=== PATIENT | female | born 1960 | race Caucasian/White ===

== ENCOUNTER 2016-09-02 19:51 | Inpatient (IN) | payer BC ==
[~2016-09-02] VITALS: Ht 167.6 cm; Wt 92.8 kg
[2016-09-02] MEDS ORDERED: MORPHINE SULFATE 8 MG/ML INJ ONE (19:55)
[2016-09-02] MEDS ORDERED: PROPOFOL 500 MG/50 ML INJ 50 ML ONE (19:57)
[2016-09-02 20:17] LABS: AUTOMATED NEUTROPHIL # 4.2 TH/MM3 (1.8-7.7); BASOPHIL # 0.1 TH/MM3 (0-0.2); BASOPHIL % 1.3 % (0.0-2.0); EOSINOPHIL # 0.2 TH/MM3 (0-0.4); EOSINOPHIL % 2.7 % (0.0-4.0); HEMATOCRIT 41.8 % (35.0-46.0); HEMO FLAGS DIFF FINAL; LYMPH % 42.7 % (9.0-44.0); LYMPHOCYTE # 3.8 TH/MM3 (1.0-4.8); MEAN CELL VOLUME 89.5 FL (80.0-100.0); MEAN CORPUSCULAR HEMOGLOBIN 30.1 PG (27.0-34.0); MEAN CORPUSCULAR HGB CONC 33.7 % (32.0-36.0); MONO % 7.2 % (0.0-8.0); NEUT % 46.1 % (16.0-70.0); PLATELET COUNT 351 TH/MM3 (150-450); RED BLOOD COUNT 4.67 MIL/MM3 (4.00-5.30); RED CELL DISTRIBUTION WIDTH 13.2 % (11.6-17.2)
--- NOTE | 2016-09-02 20:18 | PD ---
HPI Chief Complaint: ankle injury Time Seen by Provider: 19:56 Travel History International Travel<30 days: No Contact w/Intl Traveler<30days: No History of Present Illness HPI This is a 56-year-old female who was walking out of a restaurant when she tripped over a curb landing on her hands outstretched sustaining significant injury to her right ankle. She reports severe ankle pain, constant, worse with movement, improved with rest. EMS arrived and noted that the patient had bone sticking out of her leg. She also is tachycardic so she was made a trauma alert. She did not hit her head or sustain any other injuries except that she has some left ankle pain as well. FORMERLY [facility] Past Medical History Narrative Medical Hypothyroidism Seizure disorder Social History Alcohol Use: Yes (occasional) Tobacco Use: No Allergies-Medications (Allergen,Severity, Reaction): Coded Allergies: No Known Allergies (Unverified , 09/02/16) Reported Meds & Prescriptions Reported Meds & Active Scripts Active Reported Advair Diskus Inh (Fluticasone-Salmeterol Inh) 250-50 Mcg/Blist Aer 1 Puff INH DAILY Rinse mouth after use. Levothyroxine (Levothyroxine Sodium) 75 Mcg Tab 75 Mcg PO DAILY Protonix (Pantoprazole Sodium) 20 Mg Tab 20 Mg PO DAILY Tegretol (Carbamazepine) 200 Mg Tab 200 Mg PO HS Review of Systems Except as stated in HPI: all other systems reviewed are Neg Physical Exam Narrative GENERAL:Well appearing, no acute distress SKIN: Skin tenting and 1 cm breakdown immediately distal to the right tibia with skin tenting over the malleolus HEAD: Atraumatic. Normocephalic. EYES: Pupils equal and round. No injection or drainage. ENT: Moist mucous membranes NECK: Trachea midline. CARDIOVASCULAR: Regular rate and rhythm. No murmur appreciated. 2+ DP pulse in the right and left lower extremities with normal capillary refill. RESPIRATORY: Clear to auscultation. Breath sounds equal bilaterally. GASTROINTESTINAL: Abdomen soft, non-tender, nondistended. MUSCULOSKELETAL: gross deformity of the right ankle with obvious dislocation NEUROLOGICAL: Awake and alert. No obvious cranial nerve deficits. Moving all extremities. PSYCHIATRIC: Appropriate mood and affect; insight and judgment normal. Data Data Orders Morphine Inj (Morphine Inj) (09/02/16 19:55) Propofol 500 Mg/50 Ml Inj (Diprivan 500 (09/02/16 19:57) Admit Order (Ed Use Only) (09/02/16 ) Labs Laboratory Tests Test 09/02/16 19:55 White Blood Count 9.0 TH/MM3 Red Blood Count 4.67 MIL/MM3 Hemoglobin 14.1 GM/DL Bedside Hemoglobin 14.6 G/DL Hematocrit 41.8 % Bedside Hematocrit 43.0 % Mean Corpuscular Volume 89.5 FL Mean Corpuscular Hemoglobin 30.1 PG Mean Corpuscular Hemoglobin 33.7 % Concent Red Cell Distribution Width 13.2 % Platelet Count 351 TH/MM3 Mean Platelet Volume 7.4 FL Neutrophils (%) (Auto) 46.1 % Lymphocytes (%) (Auto) 42.7 % Monocytes (%) (Auto) 7.2 % Eosinophils (%) (Auto) 2.7 % Basophils (%) (Auto) 1.3 % Neutrophils # (Auto) 4.2 TH/MM3 Lymphocytes # (Auto) 3.8 TH/MM3 Monocytes # (Auto) 0.6 TH/MM3 Eosinophils # (Auto) 0.2 TH/MM3 Basophils # (Auto) 0.1 TH/MM3 CBC Comment DIFF FINAL Differential Comment Prothrombin Time 10.4 SEC Prothromb Time International 0.9 RATIO Ratio Activated Partial 22.2 SEC Thromboplast Time Bedside Sodium 142 MMOL/L Bedside Potassium 3.5 MMOL/L Bedside Chloride 103 MMOL/L Bedside Blood Urea Nitrogen 8 MG/DL Bedside Creatinine 0.6 MG/DL Bedside Glucose 110 MG/DL Blood Type A POSITIVE Antibody Screen NEGATIVE MDM Medical Screen Exam Complete: Yes Emergency Medical Condition: Yes Differential Diagnosis Tibial fracture, fibular fracture, neurovascular injury Narrative Course This is a 56-year-old female who presents to the emergency department having stepped off a curb sustaining an open fracture dislocation of the right ankle. Patient was seen in the trauma bay. IVs were established. X-rays were obtained. A conscious sedation was performed and the ankle was reduced. Betadine was placed over the open wound and the patient was splinted. She was given Ancef and gentamicin and given a tetanus shot. She was also given morphine for her pain. I spoke to Isai Christina on-call for Dr. Flor who asked that the patient be kept nothing by mouth after midnight and antibiotics be continued and patient will go to operating room first thing in the morning. Procedures Procedure Narrative After the risks and benefits were discussed the following procedure was performed: MODERATE SEDATION: The patient was placed on a ivory carver and pulse oximetry. An ambu bag and suction was immediately available at bedside. The patient was monitored by the nurse. Oxygen saturation, heart rate and blood pressure were monitored. Procedural sedation was acheived using 70 mg propofol . The patient was observed until awake and alert. Procedural Sedation time in attendance was 20 minutes. Ankle dislocation reduction: ankle was reduced using traction, countertraction. Betadine was placed on open wound. Pt had a 2+ d.p. pulse following reduction and splinting. Trauma Alert - Level One Trauma Alert Level One: Full trauma team activate, Patient evaluated, Trauma surgeon summoned Time Surgeon Summoned: 19:39 (Surgeon asked to come in) Diagnosis Diagnosis: Primary Impression: Open ankle fracture Qualified Code: S82.891C - Open ankle fracture, right, type III, initial encounter Admitting Physician Requests: Admit Nelli Romo MD September 02, 2016 20:18
[2016-09-02 20:24] LABS: I-STAT POTASSIUM 3.5 MMOL/L (3.5-4.9)
[2016-09-02] MEDS ORDERED: MORPHINE SULFATE 4 MG/ML INJ IV PUSH ONE (20:30)
[2016-09-02 20:32] LABS: APTT (PATIENT) 22.2 SEC (24.3-30.1); INTERNATIONAL NORMALIZED RATIO 0.9 RATIO; PROTHROMBIN TIME - PATIENT 10.4 SEC (9.8-11.6)
--- NOTE | 2016-09-02 20:36 | RADRPT ---
EXAM DATE/TIME: 09/02/2016 19:45 [facility] COMPARISON: No previous studies available for comparison. INDICATIONS : Trauma alert. Patient tripped over a curb. MEDICAL HISTORY : None. Unobtainable. SURGICAL HISTORY : Unobtainable. ENCOUNTER: Initial ACUITY: 1 day PAIN SCORE: Non-responsive. LOCATION: Left ankle. FINDINGS: There is soft tissue swelling over the lateral malleolus. There is a questionable tiny avulsion fract ure just below the lateral malleolus. No dislocation. Accessory ossicles noted adjacent to the medial malleolus. No dislocation. Small bone spurs posterior calcaneus. CONCLUSION: 1. Soft tissue swelling lateral malleolus tiny avulsion fracture. Balta Hogan MD on September 02, 2016 at 20:31 Board Certified Radiologist. This report was verified electronically.
--- NOTE | 2016-09-02 20:37 | RADRPT ---
EXAM DATE/TIME: 09/02/2016 19:45 [facility] COMPARISON: No previous studies available for comparison. INDICATIONS : Post reduction. MEDICAL HISTORY : Unobtainable. SURGICAL HISTORY : Unobtainable. ENCOUNTER: Subsequent ACUITY: 1 day PAIN SCORE: Non-responsive. LOCATION: Left ankle. FINDINGS: A single view of the right ankle. There is a mildly displaced fracture of the lateral malleolus. CONCLUSION: 1. Mildly displaced fracture of the lateral malleolus on this single AP view. Balta Hogan MD on September 02, 2016 at 20:33 Board Certified Radiologist. This report was verified electronically.
--- NOTE | 2016-09-02 20:38 | RADRPT ---
EXAM DATE/TIME: 09/02/2016 19:45 [facility] COMPARISON: No previous studies available for comparison. INDICATIONS : Trauma alert. Patient tripped over a curb. MEDICAL HISTORY : Unobtainable. SURGICAL HISTORY : Unobtainable. ENCOUNTER: Initial ACUITY: 1 day PAIN SCORE: Non-responsive. LOCATION: Right ankle. FINDINGS: Two view examination was performed of the right ankle. There is a fracture of the medial lateral mall eolus with medial dislocation of the tibial plafond and of the talar dome. No other fractures identif ied. CONCLUSION: 1. Fracture of both malleoli with medial dislocation at the right ankle. Air in the subcutaneous tiss ues. Balta Hogan MD on September 02, 2016 at 20:35 Board Certified Radiologist. This report was verified electronically.
--- NOTE | 2016-09-02 20:39 | RADRPT ---
EXAM DATE/TIME: 09/02/2016 19:45 [facility] COMPARISON: No previous studies available for comparison. INDICATIONS : Trauma alert. Patient tripped over a curb. Right ankle deformation. MEDICAL HISTORY : Unobtainable. SURGICAL HISTORY : Unobtainable. ENCOUNTER: Initial ACUITY: 1 day PAIN SCORE: Non-responsive. LOCATION: Bilateral chest FINDINGS: A single view of the chest demonstrates the lungs to be symmetrically aerated without evidence of mas s, infiltrate or effusion. The cardiomediastinal contours are unremarkable. Osseous structures are intact. CONCLUSION: Normal examination. Left costophrenic angle is clipped. Balta Hogan MD on September 02, 2016 at 20:36 Board Certified Radiologist. This report was verified electronically.
[2016-09-02] MEDS ORDERED: PANT20 PO (21:03)
[2016-09-02] MEDS ORDERED: ADVA250A INH (21:03)
[2016-09-02] MEDS ORDERED: LEVO75TA3 PO (21:03)
[2016-09-02] MEDS ORDERED: TEGR200T PO (21:03)
[2016-09-02] MEDS ORDERED: ACETAMINOPHEN/HYDROcodone 325 MG/5 MG TAB PO PRN (21:30)
[2016-09-02] MEDS ORDERED: SODIUM CHLORIDE 0.9% FLUSH 10 ML FLUSH IV FLUSH PRN (21:30)
[2016-09-02] MEDS ORDERED: ENALAPRILAT 1.25 MG/ML VIAL IV PRN (21:30)
[2016-09-02] MEDS ORDERED: MAGNESIUM HYDROXIDE SUSP 30 ML CUP PO PRN (21:30)
[2016-09-02] MEDS ORDERED: HYDROmorphone HCL PF 1 MG/ML VIAL IVP PRN (21:30)
[2016-09-02 21:45] VITALS: O2SAT 99
[2016-09-02] MEDS: SODIUM CHLOR 0.9% 1000 ML INJ 1,000 ML IV SCH (22:49)
[2016-09-02] MEDS: ONDANSETRON HCL 4 MG/2 ML VIAL IV PRN (22:49)
[2016-09-02] MEDS: PANTOPRAZOLE SODIUM 40 MG VIAL IVP SCH (22:49)
[2016-09-02] MEDS ORDERED: MORPHINE SULFATE 4 MG/ML INJ IV PRN (23:30)
[2016-09-03] VITALS (7 sets, daily range): BP systolic 127–170; BP diastolic 59–90; PULSE 61–91; RESP 14–18; TEMP 95.6–96.8; O2SAT 93–99
[2016-09-03] MEDS: ACETAMINOPHEN/HYDROcodone 325 MG/5 MG TAB PO PRN ×2 (00:29→04:42)
[2016-09-03] MEDS ORDERED: METOPROLOL TARTRATE 25 MG TAB PO PRN (01:00)
[2016-09-03] MEDS ORDERED: LACTATED RINGER'S 1000 ML IV PRN (01:00)
[2016-09-03] MEDS ORDERED: CHLORHEXIDINE GLUCONATE 2 % 1 PACK (2 CLOTHS) TOPICAL PRN (01:00)
[2016-09-03] MEDS ORDERED: INSULIN HUMAN REGULAR 1,000 UNITS/10 ML VIAL SQ PRN (01:00)
[2016-09-03] MEDS ORDERED: POVIDONE IODINE 5% (ANTISEPSIS KIT) 4 APPLICATIONS EACH NARE PRN (01:00)
[2016-09-03] MEDS ORDERED: SODIUM CHLORID 0.9% 500 ML IV PRN (01:00)
[2016-09-03 04:34] LABS: AUTOMATED NEUTROPHIL # 9.4 TH/MM3 (1.8-7.7); BASOPHIL % 0.3 % (0.0-2.0); EOSINOPHIL % 0.2 % (0.0-4.0); HEMATOCRIT 38.9 % (35.0-46.0); HEMO FLAGS DIFF FINAL; LYMPH % 10.6 % (9.0-44.0); LYMPHOCYTE # 1.2 TH/MM3 (1.0-4.8); MEAN CELL VOLUME 89.9 FL (80.0-100.0); MEAN CORPUSCULAR HEMOGLOBIN 29.9 PG (27.0-34.0); MEAN CORPUSCULAR HGB CONC 33.3 % (32.0-36.0); MONO % 5.1 % (0.0-8.0); NEUT % 83.8 % (16.0-70.0); PLATELET COUNT 310 TH/MM3 (150-450); RED BLOOD COUNT 4.32 MIL/MM3 (4.00-5.30); RED CELL DISTRIBUTION WIDTH 13.2 % (11.6-17.2); WHITE BLOOD COUNT 11.3 TH/MM3 (4.0-11.0)
[2016-09-03 04:50] LABS: ANION GAP 8 MEQ/L (5-15); AST (GOT) 15 U/L (15-37); BICARBONATE 23.8 MEQ/L (21.0-32.0); BLOOD UREA NITROGEN 7 MG/DL (7-18); CHLORIDE 110 MEQ/L (98-107); GLOMERULAR FILTRATION RATE 73 ML/MIN (>89); POTASSIUM 3.9 MEQ/L (3.5-5.1); SODIUM (NA) 142 MEQ/L (136-145)
[2016-09-03 04:58] LABS: ALKALINE PHOSPHATASE 87 U/L (45-117); ALT (GPT) 21 U/L (10-53); TOTAL BILIRUBIN ADULT 0.2 MG/DL (0.2-1.0)
[2016-09-03] MEDS ORDERED: GENTAMICIN 80 MG PREMIX 100 ML IV SCH (06:00)
--- NOTE | 2016-09-03 06:31 | PD.ORT.PN ---
Subjective Subjective Remarks Admitted last night, tripped and parking lot at [employer]. Open right ankle and sprain to left ankle no other complaints Objective Vitals Vital Signs Date Time Temp Pulse Resp B/P Pulse Ox O2 Delivery O2 Flow Rate FiO2 09/03/16 05:45 18 09/03/16 04:15 96.5 80 16 152/67 98 09/03/16 03:21 Room Air Nasal Cannula 09/03/16 00:20 96.7 89 17 155/76 96 09/02/16 21:45 99 3.00 09/02/16 21:45 99 I/O 09/02/16 09/02/16 09/02/16 09/03/16 09/03/16 09/03/16 07:00 15:00 23:00 07:00 15:00 23:00 Intake Total 594 ml Balance 594 ml Intake IV Total 594 ml Result Diagram: 09/03/16 0406 09/03/16 0406 Other Results Laboratory Tests Test 09/02/16 19:55 Prothrombin Time 10.4 SEC (9.8-11.6) Prothromb Time International 0.9 RATIO Ratio Imaging Last 24 hours Impressions Chest X-Ray 09/02/162008 Signed Impressions: Service Date/Time: Friday, September 02, 2016 19:45 - CONCLUSION: Normal examination. Left costophrenic angle is clipped. Balta Hogan MD Objective Remarks Bilateral upper extremities: Full range of motion neurovascular intact Left lower extremity: Splint removed reveals skin that is intact she has mild tenderness over the lateral ankle ligaments. Range of motion of the ankle is 10 of dorsiflexion and 40 plantarflexion. She has intact distally with good capillary refills Right lower extremity: No pain with hip or knee range of motion. Splint and ice cuff intact over ankle. Distally intact sensation with good capillary refills is able to move all toes. Assessment & Plan Assessment and Plan Left ankle sprain Right open bimalleolar ankle fracture Nothing by mouth Surgery this morning for irrigation debridement and open reduction internal fixation of right ankle. Will be admitted for approximately 48 hours postop for IV antibiotics Sign consents Fred Christina Jr. September 03, 2016 06:31
[2016-09-03] MEDS ORDERED: BUPIVACAINE/EPINEPHRINE 0.25% 50 ML VIAL ONE (07:19)
[2016-09-03] MEDS: SODIUM CHLOR 0.9% 1000 ML INJ 1,000 ML IV SCH ×2 (07:24→17:24)
[2016-09-03] MEDS ORDERED: ACETAMINOPHEN 1000 MG/100 ML VIAL IV ONE (07:27)
[2016-09-03] MEDS: GENTAMICIN SULFATE 80 MG/2 ML VIAL ONE ×2 (07:27→07:58)
[2016-09-03] MEDS ORDERED: ceFAZolin INJ 1,000 MG VIAL IV ONE (07:41)
--- NOTE | 2016-09-03 07:44 | MB ---
cc: LUCIE DUKE DATE OF CONSULTATION: 09/03/2016 REASON FOR CONSULTATION: Open right ankle fracture-dislocation. HISTORY This patient known as Kavya Ferrell was leaving a restaurant. She tripped over a parking curb. She rolled her right ankle. She had immediate right ankle pain and deformity. She also had some mild left ankle pain. She presented to the emergency room where she was found to have a small puncture wound over her ankle. She was noted to have a right ankle fracture-dislocation. She is currently awake and alert on the orthopedic floor. Her only complaint is her ankles. Her right ankle hurts worse than her left. The pain is worse with movement and is improved with rest. She has received IV antibiotics. PAST MEDICAL HISTORY ILLNESSES Hypothyroidism and seizure disorder. SURGERIES None. ALLERGIES NO KNOWN DRUG ALLERGIES. MEDICATIONS 1. Advair 2. Levothyroxine 3. Protonix. 4. Tegretol. SOCIAL HISTORY The patient denies tobacco or drug use. She drinks alcohol occasionally. REVIEW OF SYSTEMS The patient denies headache, visual changes, neck pain, chest pain, shortness of breath, abdominal pain, nausea, vomiting, recent weight loss, numbness or tingling of the extremities. She complains of bilateral ankle pain. PHYSICAL EXAMINATION The patient is a pleasant female who is awake and alert. She is alert and oriented x3. Vital signs: Temperature 96.1, pulse 91, respirations 17, blood pressure 170/90, O2 sat 98% on room air. Head: The patient is normocephalic. Pupils are equal. Neck: Soft, nontender. Trachea is midline. Abdomen: Soft, nontender, nondistended. Extremities: Examination of bilateral upper extremities reveals no pain with shoulder, elbow or wrist motion. She has intact sensation in all fingers. Radial pulses are palpable. Skin is intact to both hands. Presser All Around strength is +5 bilaterally. Examination of left leg reveals no pain with hip or any motion. She has very mild tenderness over the lateral ankle ligaments. She has minimal pain with ankle range of motion. Skin is intact. She has minimal swelling. Dorsalis pedis pulses palpable. Sensation is intact. Examination of right leg reveals no pain with hip or any motion. She is diffusely tender on the ankle. There is mild ankle swelling. She has good capillary refill on her toes. She has pain with any ankle motion. She has approximately 2 cm open laceration. X-RAYS: X-rays of right ankle were reviewed, x-rays reveal a displaced right ankle bimalleolar fracture. IMPRESSION 1. Left ankle sprain. 2. Right ankle open bimalleolar fracture. PLAN Treatment options were discussed with the patient. At this point I would recommend irrigation and debridement followed by open reduction internal fixation of right ankle. The risks of surgery include bleeding, infection, injury to arteries, nerves, blood vessels, nonunion, malunion, ankle arthritis as well as medical complications including blood clot, stroke, heart attack and . All questions were answered. We will plan on surgery today. A mid-level provider in my office (nurse practitioner or physician medical assistant internal medicine) may see this patient on follow-up visits and continue to implement the objectives of this plan including: Starting or adjusting medications, injections , cast application, orthotics, brace application, physical therapy, radiological studies (including x-ray, MRI, CT, ultrasound, bone scan), vascular studies, neurologic studies, specialist consultation, and proceeding with surgical management, as appropriate. MD LISS Angeles/MELANIE /7:24 AM /:37 AM ALEJANDRO
[2016-09-03] MEDS ORDERED: Post-op Orders (for Pharmacy) MISC XX ONE (08:45)
[2016-09-03] MEDS ORDERED: MORPHINE SULFATE 4 MG/ML INJ IV PUSH PRN (08:45)
[2016-09-03] MEDS ORDERED: SODIUM CHLORIDE 0.9% FLUSH 5 ML FLUSH IVF PRN (08:45)
--- NOTE | 2016-09-03 08:47 | PD.OP ---
cc: Ellis Flor MD Operative Report Date of Surgery: September 03, 2016 Preoperative Diagnosis: Open right ankle fracture dislocation Postoperative Diagnosis: Procedure: Irrigation and debridement of open right ankle fracture, open reduction internal fixation bimalleolar right ankle fracture Surgeon: Ellis Flor Product Support Rep(s): STEPHANIE Martinez PA-C The surgical procedure was assisted by my physician senior court office assistant. My P.A. presence was necessary throughout this case for the manipulation and positioning of the surgical extremity. My P.A. was assisting me throughout the duration of this procedure. The skill set of a physician senior court office assistant was medically necessary to complete this procedure. During the surgical case the surgical nurse was working at the back table and the physician senior court office assistant was directly assisting me. Operation and Findings: Patient was seen and evaluated preoperatively and found to have a displaced open right ankle fracture. Informed consent was obtained after a detailed discussion of risk and benefits of surgery. The operative site was marked. Patient was brought to the OR, placed on the OR table, and given IV sedation and general endotracheal anesthesia. IV antibiotics were given preoperatively. A timeout procedure was performed. The right leg was prepped with alcohol followed by Hibiclens and draped in the usual sterile fashion. Attention was turned towards the open fracture. The medial malleolus fracture was the open fracture. The medial malleolus supposed through a 3 cm incision. Saphenous vein was retracted. Fracture was visualized. Fracture was cleaned with curettes. Overall the wound was clean. After thorough debridement the wound was thoroughly irrigated with 3 layers of sterile saline. There was no visible gross contamination present. Next attention was turned towards medial malleolus fracture. Fracture was now reduced and keyed into anatomic alignment. K wires were used to hold provisional fixation. 2 guidepins for the 4.0 cannulated screws were placed in a retrograde fashion across the fracture. Fluoroscopy was used to confirm guidepin placement. Cannulated drill was placed over the guidepin. 2 appropriate length screws were now placed. Good compression was applied. Fluoroscopy confirmed well aligned fracture with well-placed hardware. Attention was turned towards the distal fibula. A four-inch incision was made over the distal fibula. The subcutaneous tissue was dissected with Bovie. The fracture site was visualized. The fracture site was cleaned with curets. The fracture was now reduced. The fracture keyed into anatomic alignment. K-wires were used to h old provisional fixation. A Synthes plate was selected. The plate was provisionally held to bone with K-wires. 3.5 cortical screws were used to compress the plate to bone. Multiple screws were placed above and below the fracture. Next, attention was turned to the syndesmosis. The syndesmosis was stressed. There was no widening of the syndesmosis with external rotation of the ankle. Incisions were thoroughly irrigated. The subcutaneous tissue was closed with 3- 0 PDS and the skin was closed with 3-0 nylon. Sterile dressings were applied. A well molded well-padded splint was applied. The patient was transferred to Recovery in stable condition. Needle and sponge counts were correct. Ellis Flor MD September 03, 2016 08:47
[2016-09-03] MEDS ORDERED: fentaNYL CITRATE 250 MCG/5 ML AMP ONE (08:57)
[2016-09-03] MEDS ORDERED: *MEPERIDINE 25 MG INJ VIAL PERIprocedural Use ONLY ONE (08:57)
[2016-09-03] MEDS ORDERED: MIDAZOLAM HCL 2 MG/2 ML VIAL ONE (08:57)
[2016-09-03] MEDS: SODIUM CHLORIDE 0.9% FLUSH 5 ML FLUSH IVF SCH ×2 (09:00→20:57)
[2016-09-03] MEDS ORDERED: DOCUSATE SODIUM 100 MG CAP PO SCH (09:00)
[2016-09-03] MEDS: CALCIUM/VITAMIN D 250 MG/125 U TAB PO SCH ×3 (09:00→18:30)
[2016-09-03] MEDS ORDERED: *morphine SULFATE 8 MG/ML PERIprocedure ONLY ONE (09:12)
[2016-09-03] MEDS: LACTATED RINGER'S 1000 ML INJ 1,000 ML IV SCH ×2 (09:15→18:41)
[2016-09-03] MEDS ORDERED: DO NOT ADM ANY ANTICOAGULANT DRUGS PRN (09:45)
[2016-09-03] MEDS: ACETAMINOPHEN/HYDROcodone 325 MG/10 MG TAB PO PRN ×4 (10:20→23:10)
[2016-09-03] MEDS: LEVOTHYROXINE SODIUM 75 MCG TAB PO SCH (10:20)
[2016-09-03] MEDS: BUDESONIDE-FORMOTEROL 160/4.5 MCG INHALER INH SCH (10:20)
--- NOTE | 2016-09-03 10:37 | EKG ---
Date Performed: 09/03/2016 Time Performed: 01:00:32 PTAGE: 89 years EKG: Sinus rhythm . rSr'(V1) - probable normal variant Possible anterior infarct - age undetermined Low QRS voltages in precordial leads Abnormal ECG NO PREVIOUS TRACING DOCTOR: Karan Atkins Interpretating Date/Time 09/03/2016 10:35:02
[2016-09-03] MEDS ORDERED: ONDANSETRON HCL 4 MG/2 ML VIAL IV PUSH ONE (11:52)
[2016-09-03] MEDS ORDERED: PROPOFOL 200 MG/20 ML AMP IV ONE (11:52)
--- NOTE | 2016-09-03 12:10 | RADRPT ---
EXAM DATE/TIME: 09/03/2016 08:26 [facility] COMPARISON: ANKLE RIGHT LIMITED (AP&LAT), September 02, 2016, 19:45. INDICATIONS : ORIF ankle. MEDICAL HISTORY : None. SURGICAL HISTORY : None. ENCOUNTER: Initial ACUITY: 1 day PAIN SCORE: Non-responsive. LOCATION: Right ankle FINDINGS: AP and lateral coned-down views of the ankle were obtained using a matrix camera. This demonstrates t he patient is status post open rigid internal fixation with screw-plate fixation device along the dis scott fibula and 2 lag-type screws in the medial malleolus. The ankle mortise is now congruent ankle fr acture fragments are in anatomic alignment. CONCLUSION: Status post open rigid internal fixation. Fred Matt MD on September 03, 2016 at 12:08 Board Certified Radiologist. This report was verified electronically.
--- NOTE | 2016-09-03 12:29 | HHI.PR ---
Subjective Subjective Notes S/P I&D and ORIF of right ankle Complains of nausea Objective Vitals/I&O Vital Signs Date Time Temp Pulse Resp B/P Pulse Ox O2 Delivery O2 Flow Rate FiO2 09/03/16 09:40 74 15 132/70 98 Nasal Cannula 09/03/16 09:30 97.8 2 Labs Laboratory Tests Test 09/02/16 09/03/16 19:55 04:06 White Blood Count 9.0 11.3 Red Blood Count 4.67 4.32 Hemoglobin 14.1 12.9 Bedside Hemoglobin 14.6 Hematocrit 41.8 38.9 Bedside Hematocrit 43.0 Mean Corpuscular Volume 89.5 89.9 Mean Corpuscular Hemoglobin 30.1 29.9 Mean Corpuscular Hemoglobin 33.7 33.3 Concent Red Cell Distribution Width 13.2 13.2 Platelet Count 351 310 Mean Platelet Volume 7.4 7.4 Neutrophils (%) (Auto) 46.1 83.8 Lymphocytes (%) (Auto) 42.7 10.6 Monocytes (%) (Auto) 7.2 5.1 Eosinophils (%) (Auto) 2.7 0.2 Basophils (%) (Auto) 1.3 0.3 Neutrophils # (Auto) 4.2 9.4 Lymphocytes # (Auto) 3.8 1.2 Monocytes # (Auto) 0.6 0.6 Eosinophils # (Auto) 0.2 0.0 Basophils # (Auto) 0.1 0.0 CBC Comment DIFF FINAL DIFF FINAL Differential Comment Prothrombin Time 10.4 Prothromb Time International 0.9 Ratio Activated Partial 22.2 Thromboplast Time Bedside Sodium 142 Bedside Potassium 3.5 Bedside Chloride 103 Bedside Blood Urea Nitrogen 8 Bedside Creatinine 0.6 Bedside Glucose 110 Blood Type A POSITIVE Antibody Screen NEGATIVE Sodium Level 142 Potassium Level 3.9 Chloride Level 110 Carbon Dioxide Level 23.8 Anion Gap 8 Blood Urea Nitrogen 7 Creatinine 0.69 Estimat Glomerular Filtration 73 Rate Random Glucose 116 Calcium Level 8.4 Total Bilirubin 0.2 Aspartate Amino Transf 15 (AST/SGOT) Alanine Aminotransferase 21 (ALT/SGPT) Alkaline Phosphatase 87 Total Protein 7.0 Albumin 3.7 Radiology Last Impressions Ankle X-Ray 09/03/16 0000 Signed Impressions: Service Date/Time: Saturday, September 03, 2016 08:26 - CONCLUSION: Status post open rigid internal fixation. Fred Matt MD Chest X-Ray 09/02/162008 Signed Impressions: Service Date/Time: Friday, September 02, 2016 19:45 - CONCLUSION: Normal examination. Left costophrenic angle is clipped. Balta Hogan MD Narrative Exam GENERAL: 56 year old well-nourished, well-developed female lying in bed. SKIN: Warm and dry. HEAD: Atraumatic. Normocephalic. ENT: No nasal bleeding or discharge. Mucous membranes pink and moist. NECK: Trachea midline. No JVD. CARDIOVASCULAR: Regular rate and rhythm. RESPIRATORY: No accessory muscle use. Clear to auscultation. Breath sounds equal bilaterally. GASTROINTESTINAL: Abdomen soft, non-tender, nondistended. MUSCULOSKELETAL: Extremities without clubbing, cyanosis, or edema. RLE with soft splint in place. Good cap refill, skin warm and dry, + sensation. LEFT ankle edema noted. NEUROLOGICAL: Awake and alert. Normal speech. A/P Assessment and Plan INJURIES: RIGHT open bimalleolar ankle fx LEFT ankle sprain 09/03: I&D and ORIF of right ankle PMHx: Hypothyroidism, seizure dx Diet: Regular Pulmonary: IS, encouraged patient use Pain: Shirley 1-2 tabs, IV Dilaudid Activity: OOB. PT ordered (NWB RLE) GI: IV Protonix Bowel: Leah-colace. No BM yet DVT: SCDs -RIGHT open bimalleolar ankle fx S/P I&D and ORIF of right ankle NWB RLE Orthopedics following -LEFT ankle sprain Non-op WBAT Case management consulted to assist with discharge planning, Plan of care discussed with patient and at bedside. Carol Gonzalez September 03, 2016 12:29
--- NOTE | 2016-09-03 14:32 | MH ---
cc: PAULIE DELACRUZ DATE OF ADMISSION: 09/02/2016 HISTORY OF PRESENT ILLNESS This is a 56-year-old female who was walking and tripped on the curb and sustained an ankle fracture. The patient was brought in as a trauma alert secondary to this and elevated heart rate. The patient denies hitting the floor. She denies loss of consciousness. Denies any other trauma to her body. PAST MEDICAL HISTORY She has a medical history significant for: 1. Hypothyroidism. 2. Seizure disorders. MEDICATIONS At home includes: 1. Tegretol. 2. Levothyroxine. 3. Protonix. 4. Advair. ALLERGIES NO KNOWN DRUG ALLERGIES. SOCIAL HISTORY She does not smoke. She drinks alcohol occasionally. FAMILY HISTORY Noncontributory. REVIEW OF SYSTEMS Significant for above. All other 10-point review negative. PHYSICAL EXAMINATION GENERAL: On exam the patient is laying on the stretcher in distress secondary to pain. EYES: Pupils are equal and reactive. NECK: Nontender. Full range of motion. RESPIRATIONS: Clear. CARDIOVASCULAR: Regular. GASTROINTESTINAL: Soft, nontender. MUSCULOSKELETAL: Deformity of the patient's right ankle with dislocation and a puncture overlying the medial aspect. NEUROLOGIC: Nonfocal. LABORATORY DATA White blood cell count 9, hemoglobin 14, hematocrit 43. RADIOLOGICAL IMAGES X-ray of her ankle revealed fracture at the lateral malleolus. ASSESSMENT This is a patient who sustained a fracture dislocation of her ankle on the right. The patient is being admitted. Orthopedics has been consulted. Her ankle was reduced to the emergency room by the emergency room physician. Will provide pain management. MD FEI Rubio/TLL /1:43 PM /2:13 PM
[2016-09-03] MEDS: ceFAZolin 2 GM PREMIX 50 ML IV SCH ×2 (14:39→23:04)
[2016-09-03] MEDS: ONDANSETRON HCL 4 MG/2 ML VIAL IV PRN (14:40)
[2016-09-03] MEDS: KETOROLAC TROMETHAMINE 30 MG/ML (IVP) VIAL IVP SCH ×2 (14:40→20:56)
[2016-09-03] MEDS: GENTAMICIN 80 MG PREMIX 100 ML IV SCH ×2 (14:42→23:03)
[2016-09-03] MEDS: carBAMazepine 200 MG TAB PO SCH (20:55)
[2016-09-03] MEDS: PANTOPRAZOLE SODIUM 40 MG VIAL IVP SCH (20:55)
[2016-09-03] MEDS: DOCUSATE SODIUM 50 MG/SENNA 8.6 MG TAB PO SCH (20:56)
[2016-09-04] VITALS (7 sets, daily range): BP systolic 122–146; BP diastolic 60–88; PULSE 79–96; RESP 17–18; TEMP 96.4–97.5; O2SAT 96–100
[2016-09-04] MEDS: SODIUM CHLOR 0.9% 1000 ML INJ 1,000 ML IV SCH ×3 (02:25→23:24)
[2016-09-04] MEDS: LACTATED RINGER'S 1000 ML INJ 1,000 ML IV SCH ×2 (02:31→14:41)
--- NOTE | 2016-09-04 06:36 | PD.ORT.PN ---
Subjective Subjective Remarks POD 1 ORIF right ankle doing well. pain controlled. no complaints. Objective Vitals Vital Signs Date Time Temp Pulse Resp B/P Pulse Ox O2 Delivery O2 Flow Rate FiO2 09/04/16 00:10 18 09/04/16 00:05 96.8 79 17 128/60 96 09/03/16 21:56 17 09/03/16 20:05 96.8 82 17 127/59 96 09/03/16 19:45 Nasal Cannula 2.00 09/03/16 16:00 95.6 74 18 144/67 93 09/03/16 12:00 96.1 61 14 144/72 99 09/03/16 10:38 96.4 66 14 149/70 98 09/03/16 09:40 74 15 132/70 98 Nasal Cannula 09/03/16 09:30 97.8 76 15 129/68 98 Nasal Cannula 2 09/03/16 09:15 80 14 145/73 97 Nasal Cannula 2 09/03/16 09:00 87 13 169/83 99 Nasal Cannula 3 09/03/16 08:53 98.0 93 12 163/85 97 Nasal Cannula 3 09/03/16 06:45 96.1 91 17 170/90 I/O 09/03/16 09/03/16 09/03/16 09/04/16 09/04/16 09/04/16 07:00 15:00 23:00 07:00 15:00 23:00 Intake Total 594 ml 1620 ml 960 ml 480 ml Output Total 525 ml Balance 594 ml 1095 ml 960 ml 480 ml Intake Oral 0 ml 720 ml 960 ml 480 ml IV Total 594 ml 100 ml Other 800 ml Output Urine Total 500 ml Estimated Blood Loss 25 ml # Voids 1 2 2 1 # Bowel Movements 0 0 0 Result Diagram: 09/03/16 0406 09/03/16 0406 Imaging Last 24 hours Impressions Chest X-Ray 09/02/162008 Signed Impressions: Service Date/Time: Friday, September 02, 2016 19:45 - CONCLUSION: Normal examination. Left costophrenic angle is clipped. Balta Hogan MD Objective Remarks RLE: dressings clean and dry. +splint. NVI Assessment & Plan Assessment and Plan 1) Right Open Ankle Fx s/p ORIF - POD 1 -NWB -maintain splint at all times -elevate -finish Abx dosing -ortho cleared for DC home once Abx complete -f/u with Timi or RAMON in 2 weeks Willam Chan September 04, 2016 06:36
[2016-09-04] MEDS ORDERED: HYDR-3288 PO (06:38)
[2016-09-04] MEDS ORDERED: WALKER/ADULT/FO1 MIS (06:38)
[2016-09-04] MEDS: GENTAMICIN 80 MG PREMIX 100 ML IV SCH ×2 (06:47→16:00)
[2016-09-04] MEDS: ceFAZolin 2 GM PREMIX 50 ML IV SCH ×2 (06:47→14:08)
[2016-09-04] MEDS: ACETAMINOPHEN/HYDROcodone 325 MG/10 MG TAB PO PRN ×4 (06:57→19:55)
[2016-09-04] MEDS ORDERED: MILKSUS PO (06:58)
[2016-09-04] MEDS ORDERED: SENN1TAB PO (06:58)
[2016-09-04] MEDS: LACTULOSE SYRUP 20 GM/30 ML CUP PO SCH (08:34)
[2016-09-04] MEDS: CALCIUM/VITAMIN D 250 MG/125 U TAB PO SCH ×3 (08:35→17:27)
[2016-09-04] MEDS: DOCUSATE SODIUM 50 MG/SENNA 8.6 MG TAB PO SCH ×2 (08:35→19:57)
[2016-09-04] MEDS: SODIUM CHLORIDE 0.9% FLUSH 5 ML FLUSH IVF SCH ×2 (08:35→19:57)
[2016-09-04] MEDS: BUDESONIDE-FORMOTEROL 160/4.5 MCG INHALER INH SCH (08:35)
[2016-09-04] MEDS: LEVOTHYROXINE SODIUM 75 MCG TAB PO SCH (08:35)
[2016-09-04] MEDS ORDERED: WHEEMIS3 (11:31)
--- NOTE | 2016-09-04 13:25 | HHI.DS ---
Discharge Summary Admission Date September 02, 2016 at 20:10 Discharge Date: September 04, 2016 Admitting Diagnosis open ankle fracture (1) Open ankle fracture Diagnosis: Principal Brief History Trip and fall. CBC/BMP: 09/03/16 0406 09/03/16 0406 Significant Findings Laboratory Tests Test 09/02/16 09/03/16 19:55 04:06 Activated Partial 22.2 SEC Thromboplast Time (24.3-30.1) Bedside Glucose 110 MG/DL (60-95) White Blood Count 11.3 TH/MM3 (4.0-11.0) Neutrophils (%) (Auto) 83.8 % (16.0-70.0) Neutrophils # (Auto) 9.4 TH/MM3 (1.8-7.7) Chloride Level 110 MEQ/L (98-107) Estimat Glomerular Filtration 73 ML/MIN (>89) Rate Random Glucose 116 MG/DL (74-106) Calcium Level 8.4 MG/DL (8.5-10.1) Imaging Last Impressions Ankle X-Ray 09/03/16 0000 Signed Impressions: Service Date/Time: Saturday, September 03, 2016 08:26 - CONCLUSION: Status post open rigid internal fixation. Fred Matt MD Chest X-Ray 09/02/162008 Signed Impressions: Service Date/Time: Friday, September 02, 2016 19:45 - CONCLUSION: Normal examination. Left costophrenic angle is clipped. Balta Hogan MD PE at Discharge GENERAL: This is a 56 year old well-nourished, well-developed female lying in bed. SKIN: Warm and dry. HEAD: Atraumatic. Normocephalic. ENT: No nasal bleeding or discharge. Mucous membranes pink and moist. NECK: Trachea midline. No JVD. CARDIOVASCULAR: Regular rate and rhythm. RESPIRATORY: No accessory muscle use. Lungs are clear to auscultation. Breath sounds equal bilaterally. GASTROINTESTINAL: Abdomen soft, non-tender, nondistended. MUSCULOSKELETAL: Extremities without clubbing, cyanosis, or edema. RLE with soft splint in place and wrapped with Marlon bandage. Good cap refill, skin warm and dry, + sensation. NEUROLOGICAL: Awake and alert. Normal speech. Hospital Course [place]: This is a 56-year-old female who tripped over a curb and sustained significant injury to her right ankle PMHx: PMHx: Hypothyroidism, seizure dx INJURIES: Right open bimalleolar ankle fracture Left ankle sprain Procedures: 09/07: I&D and ORIF of right ankle Consults: Orthopedics Patient would very much like to go home. She states she will have help at home from her significant other. The patient is now tolerating a po diet. Eating and drinking well. Pain is being managed well with PO pain medications, and patient is being a provided with a script for pain meds upon discharge. (NO driving while taking narcotic pain medication enforced to patient.) We have recommended to patient to continue with stool softeners while taking narcotic pain medications to prevent constipation. Pt has been participating in PT and OT while admitted at [place] and has been ambulating with their assistance and independently. All follow up appointments have been provided and discussed with the patient. It is recommended that the patient keeps all his follow up appointments for continued recovery. Therefore, the patient is stable to be safely discharged home from a trauma surgery standpoint. Thank you for allowing us to participate in her care. We wish Gracie the best in her recovery. - Right open bimalleolar ankle fracture Orthopedics consulted and assisting in care and management 09/03: I&D and ORIF of RIGHT ankle NWB RLE Clarified with RAMON Quarles and patient is clear for discharge today DME ordered - walker and wheelchair Pt Condition on Discharge: Stable Discharge Disposition: Discharge Home Discharge Instructions DIET: Follow Instructions for: As Tolerated, No Restrictions Activities you can perform: Non Weight Bearing Activities to Avoid: Concussion Sports, Contact Sports, Weight Bearing, Prolonged Standing, Driving Other Activity Instructions: Non-weight bearing RIGHT lower extremity Kary Khan September 04, 2016 13:25
[2016-09-04] MEDS: carBAMazepine 200 MG TAB PO SCH (19:56)
[2016-09-04] MEDS ORDERED: MAGNESIUM HYDROXIDE SUSP 30 ML CUP PO SCH (21:00)
[2016-09-05] MEDS: ACETAMINOPHEN/HYDROcodone 325 MG/10 MG TAB PO PRN ×4 (00:14→16:31)
--- NOTE | 2016-09-05 07:09 | PD.ORT.PN ---
Subjective Subjective Remarks POD 2 ORIF right ankle doing well. pain controlled. no complaints. discharge was held yesterday due to acquiring DME Objective Vitals Vital Signs Date Time Temp Pulse Resp B/P Pulse Ox O2 Delivery O2 Flow Rate FiO2 09/04/16 23:58 97.0 84 17 146/69 98 09/04/16 19:32 96.8 96 18 122/88 96 09/04/16 16:00 96.4 87 18 140/68 100 09/04/16 12:00 96.6 82 18 126/66 100 09/04/16 11:02 98 09/04/16 08:00 97.5 88 18 134/74 98 I/O 09/04/16 09/04/16 09/04/16 09/05/16 09/05/16 09/05/16 07:00 15:00 23:00 07:00 15:00 23:00 Intake Total 731 ml 720 ml 480 ml 240 ml Balance 731 ml 720 ml 480 ml 240 ml Intake Oral 480 ml 720 ml 480 ml 240 ml IV Total 251 ml # Voids 1 4 3 2 # Bowel Movements 0 0 0 0 Result Diagram: 09/03/16 0406 09/03/16 0406 Imaging Last 24 hours Impressions Chest X-Ray 09/02/162008 Signed Impressions: Service Date/Time: Friday, September 02, 2016 19:45 - CONCLUSION: Normal examination. Left costophrenic angle is clipped. Balta Hogan MD Objective Remarks RLE: dressings clean and dry. +splint. NVI Assessment & Plan Assessment and Plan 1) Right Open Ankle Fx s/p ORIF - POD 2 -NWB -maintain splint at all times -elevate -finish Abx dosing -ortho cleared for DC home once Abx complete -f/u with Timi or RAMON in 2 weeks Willam Chan September 05, 2016 07:09
[2016-09-05 08:00] VITALS: BP 127/75; PULSE 80; RESP 18; TEMP 96.9; O2SAT 94
[2016-09-05] MEDS: LEVOTHYROXINE SODIUM 75 MCG TAB PO SCH (08:58)
[2016-09-05] MEDS: DOCUSATE SODIUM 50 MG/SENNA 8.6 MG TAB PO SCH (08:58)
[2016-09-05] MEDS: CALCIUM/VITAMIN D 250 MG/125 U TAB PO SCH ×2 (08:58→11:10)
[2016-09-05] MEDS: LACTULOSE SYRUP 20 GM/30 ML CUP PO SCH (08:58)
[2016-09-05] MEDS: SODIUM CHLORIDE 0.9% FLUSH 5 ML FLUSH IVF SCH (09:00)
[2016-09-05] MEDS: BUDESONIDE-FORMOTEROL 160/4.5 MCG INHALER INH SCH (09:00)
--- NOTE | 2016-09-05 11:17 | HHI.PR ---
Subjective Subjective Notes PTD: 3 Patient sitting up in bed. No complaints offered. Waiting for DME, so she can be discharged safely. Remarks seen and examined with [employer]CHNICIAN overall doing well ambulating dc hoME with DME Objective Vitals/I&O Vital Signs Date Time Temp Pulse Resp B/P Pulse Ox O2 Delivery O2 Flow Rate FiO2 09/05/16 08:00 96.9 80 18 127/75 94 09/03/16 19:45 Nasal Cannula 2.00 Labs Laboratory Tests Test 09/02/16 09/03/16 19:55 04:06 Bedside Hemoglobin 14.6 G/DL Bedside Hematocrit 43.0 % Prothrombin Time 10.4 SEC Prothromb Time International 0.9 RATIO Ratio Activated Partial 22.2 SEC Thromboplast Time Bedside Sodium 142 MMOL/L Bedside Potassium 3.5 MMOL/L Bedside Chloride 103 MMOL/L Bedside Blood Urea Nitrogen 8 MG/DL Bedside Creatinine 0.6 MG/DL Bedside Glucose 110 MG/DL Blood Type A POSITIVE Antibody Screen NEGATIVE White Blood Count 11.3 TH/MM3 Red Blood Count 4.32 MIL/MM3 Hemoglobin 12.9 GM/DL Hematocrit 38.9 % Mean Corpuscular Volume 89.9 FL Mean Corpuscular Hemoglobin 29.9 PG Mean Corpuscular Hemoglobin 33.3 % Concent Red Cell Distribution Width 13.2 % Platelet Count 310 TH/MM3 Mean Platelet Volume 7.4 FL Neutrophils (%) (Auto) 83.8 % Lymphocytes (%) (Auto) 10.6 % Monocytes (%) (Auto) 5.1 % Eosinophils (%) (Auto) 0.2 % Basophils (%) (Auto) 0.3 % Neutrophils # (Auto) 9.4 TH/MM3 Lymphocytes # (Auto) 1.2 TH/MM3 Monocytes # (Auto) 0.6 TH/MM3 Eosinophils # (Auto) 0.0 TH/MM3 Basophils # (Auto) 0.0 TH/MM3 CBC Comment DIFF FINAL Differential Comment Sodium Level 142 MEQ/L Potassium Level 3.9 MEQ/L Chloride Level 110 MEQ/L Carbon Dioxide Level 23.8 MEQ/L Anion Gap 8 MEQ/L Blood Urea Nitrogen 7 MG/DL Creatinine 0.69 MG/DL Estimat Glomerular Filtration 73 ML/MIN Rate Random Glucose 116 MG/DL Calcium Level 8.4 MG/DL Total Bilirubin 0.2 MG/DL Aspartate Amino Transf 15 U/L (AST/SGOT) Alanine Aminotransferase 21 U/L (ALT/SGPT) Alkaline Phosphatase 87 U/L Total Protein 7.0 GM/DL Albumin 3.7 GM/DL Radiology Last Impressions Ankle X-Ray 09/03/16 0000 Signed Impressions: Service Date/Time: Saturday, September 03, 2016 08:26 - CONCLUSION: Status post open rigid internal fixation. Fred Matt MD Chest X-Ray 09/02/162008 Signed Impressions: Service Date/Time: Friday, September 02, 2016 19:45 - CONCLUSION: Normal examination. Left costophrenic angle is clipped. Balta Hogan MD Narrative Exam GENERAL: This is a 56 year old well-nourished, well-developed female lying in bed. SKIN: Warm and dry. HEAD: Atraumatic. Normocephalic. ENT: No nasal bleeding or discharge. Mucous membranes pink and moist. NECK: Trachea midline. No JVD. CARDIOVASCULAR: Regular rate and rhythm. RESPIRATORY: No accessory muscle use. Lungs are clear to auscultation. Breath sounds equal bilaterally. GASTROINTESTINAL: Abdomen soft, non-tender, nondistended. MUSCULOSKELETAL: Extremities without clubbing, cyanosis, or edema. RLE with soft splint in place and wrapped with Marlon bandage. Good cap refill, skin warm and dry, + sensation. NEUROLOGICAL: Awake and alert. Normal speech. A/P Problem List: (1) Open ankle fracture Assessment and Plan [place]: This is a 56-year-old female who fell. She tripped over a curb sustaining a significant injury to her right ankle. PMHX: Hypothyroidism, seizure disorder INJURIES: RIGHT open bimalleolar ankle fx LEFT ankle sprain Procedures: 09/03: I&D and ORIF of right ankle Consults: Orthopedics Diet: Regular diet. Tolerating well. Pulmonary: IS. Encourage to use Q1 hour and discussed rationale. Pain management: [place] 1-2 tabs, IV Dilaudid Activity: OOB. PT ordered (NWB RLE) GI: IV Protonix Bowel: Leah-colace. M OM. LBM: 0. Intensified with lactulose daily. DVT: SCDs -RIGHT open bimalleolar ankle fx S/P I&D and ORIF of right ankle NWB RLE Orthopedics following and assisting in management of care - they have cleared the patient for discharge -LEFT ankle sprain Non-op WBAT Case management consulted to assist with discharge planning, Plan of care discussed with patient at bedside. Patient has been discharged from a trauma surgery standpoint. Patient is awaiting DME. Problem Qualifiers (1) Open ankle fracture: Qualified Code: S82.891C - Open ankle fracture, right, type III, initial encounter Kary Khan September 05, 2016 11:17 Naomy Tang MD September 05, 2016 13:18
[2016-09-05] MEDS ORDERED: BEDSIDE COMMODE1 MI1 (11:30)
[2016-09-05 12:00] VITALS: BP 130/69; PULSE 84; RESP 18; TEMP 97.3; O2SAT 95
[2016-09-05 16:00] VITALS: BP 123/71; PULSE 82; RESP 18; TEMP 97.7; O2SAT 98
== END 2016-09-05 16:41 | disposition home or self-care (01) | DRG 494 ==
LOC: NEPI 19:51 → EDBD 20:10 → NEDA 20:10 → N06A 09-03 00:25
PROVIDERS: ADMIT Surgery; ATTEND Surgery
PROC: 0QSJXZZ Reposition Right Fibula, External Approach (ICD-10-PCS; 2016-09-02)
PROC: 0QSJ04Z Reposition Right Fibula with Internal Fixation Device, Open Approach (ICD-10-PCS; 2016-09-03)
PROC: 0QSG04Z Reposition Right Tibia with Internal Fixation Device, Open Approach (ICD-10-PCS; principal; 2016-09-03 07:34)
DX: S82.841B Displaced bimalleolar fracture of right lower leg, initial encounter for open fracture type I or II (principal); W01.0XXA Fall on same level from slipping, tripping and stumbling without subsequent striking against object, initial encounter; Y92.481 Parking lot as the place of occurrence of the external cause; R00.0 Tachycardia, unspecified; E03.9 Hypothyroidism, unspecified; G40.909 Epilepsy, unspecified, not intractable, without status epilepticus
CPT/HCPCS: 27840; 71010; 73600; 76000; 80053; 82435; 82565; 82947; 84132; 84295; 84520; 85025; 85610; 85730; 86850; 86900; 86901; 90471; 93005; 94150; 96365; 96375; 99152; 99291; C1713; C9113; G0390; J0131; J0690; J1580; J1885; J2175; J2250; J2270; J2405; J3010; J7030; J7120